=== PATIENT | male | born 1960 | race Caucasian/White ===

== ENCOUNTER 2023-02-22 10:40 | Day surgery (SDC) | payer OTHER, SELFPAY ==
[2022-12-23 10:00] VITALS: BMI 22.1
[2023-02-10 09:43] VITALS: BMI 22.0
[2023-02-22 11:15] VITALS: BP 113/73; PULSE 84; RESP 16; TEMP 37.2; O2SAT 99
--- NOTE | 2023-02-22 12:42 | P.PNAN_ITS ---
Anes - Initial Pre Proc Eval Procedure: Operation Date: 02/22/23 12:30 Proposed Procedures p Screening Colonoscopy - Lake Thomas MD Date/Time: 02/22/23 12:42 Surgeon: Lake Thomas MD Pre Op Diagnosis: Neoplasm Screening Patient Data Age: 62 Gender: M Height: 1.68 m Weight: 60.35 kg Allergies Allergy/AdvReac Type Severity Reaction Status Date / Time amoxicillin AdvReac Unknown IRRITATES Verified 02/22/23 11:39 STOMACH Penicillins AdvReac Unknown Pt does Verified 02/22/23 11:39 not remember reaction Home Medications Medication Instructions Recorded Confirmed Type ascorbate calcium (vitamin C) 500 500 mg PO DAILY 06/17/22 02/22/23 History mg capsule cholecalciferol (vitamin D3) 25 25 mcg PO DAILY 06/17/22 02/22/23 History mcg (1,000 unit) capsule turmeric 400 mg capsule 400 mg PO DAILY 06/17/22 02/22/23 History glucosamine sulfate 500 mg capsule 1,000 mg PO DAILY 12/20/22 02/22/23 History sodium,potassium,mag sulfates 17.5 See Rx Instructions PO .COMPLEX 12/23/22 02/22/23 Rx gram-3.13 gram-1.6 gram oral soln #354 mL (Suprep Bowel Prep Kit) ferrous sulfate 325 mg (65 mg 325 mg PO BID 12/30/22 02/22/23 History iron) tablet Lions Paras Mushroom 1 cap PO DAILY 02/10/23 02/22/23 History Patient hx anesthesia problems: none Family hx anesthesia problems: none Results Review: All pre-operative results and documents have been reviewed as part of the pre- operative evaluation. [facility]LY [facility] Family History Family History Father Diabetes mellitus Family history of malignant neoplasm Social History Social History Smoking status: Never smoker Alcohol intake: current Drinks per week: 2 Substance use: never Substance use type: does not use Lack of Transportation: No Lack of Food: Never True Current Housing: I Have Housing Concerned About Future Housing: No Difficulty Paying Gas/Electric Bills: No Difficulty Paying for Meds: No Currently Unemployed: No Education: Bachelor's Degree Difficulty w/ Childcare or Family Care: No Living arrangements: with family Gender identity (if verbalized by the patient): Male Spiritual care concerns: No Anes - Eval Final PreProcedure Day of Procedure 02/22/23 12:42 Patient weight: normal Heart: regular rate and rhythm Lungs: clear to auscultation Airway: Mallampati scale class II Neurological: alert and oriented Last oral intake: >/= 8 hours ASA classification: II Emergent: no Anesthetic plan: proceed Anesthesia type and monitoring: general GIVS and standard monitoring Results Review: All pre-operative results and documents have been reviewed as part of the pre- operative evaluation. Informed Consent: The patient's anesthetic plan and its attendant risks and benefits were discussed with the patient/family/POA. Questions were solicited and answers provided to the satisfaction of the patient/family/POA.
--- NOTE | 2023-02-22 12:58 | P.HP_ITS ---
History of Present Illness History of Present Illness Consent: Risks, benefits, and alternatives have been discussed and questions answered. Patient agrees to proceed with procedure. Chief complaint: Neoplasm Screening Narrative: Delbert Borden is a 62 year old male Presents for screening colonoscopy. Patient's current weight appetite and bowel movements are normal. Patient denies abdominal pain. He has had no bleeding. Family history is significant that his father was found to have colon cancer several years ago. Patient presents today for neoplasia screening. Review of Systems Review of Systems: Review of systems noncontributory. FOR[facility]LY [facility] Family History Family History Father Diabetes mellitus Family history of malignant neoplasm Social History Social History Smoking status: Never smoker Alcohol intake: current Drinks per week: 2 Substance use: never Substance use type: does not use Lack of Transportation: No Lack of Food: Never True Current Housing: I Have Housing Concerned About Future Housing: No Difficulty Paying Gas/Electric Bills: No Difficulty Paying for Meds: No Currently Unemployed: No Education: Bachelor's Degree Difficulty w/ Childcare or Family Care: No Living arrangements: with family Gender identity (if verbalized by the patient): Male Spiritual care concerns: No Meds Home Medications and Allergies Home Medications Medication Instructions Recorded Confirmed Type ascorbate calcium (vitamin C) 500 500 mg PO DAILY 06/17/22 02/22/23 History mg capsule cholecalciferol (vitamin D3) 25 25 mcg PO DAILY 06/17/22 02/22/23 History mcg (1,000 unit) capsule turmeric 400 mg capsule 400 mg PO DAILY 06/17/22 02/22/23 History glucosamine sulfate 500 mg capsule 1,000 mg PO DAILY 12/20/22 02/22/23 History sodium,potassium,mag sulfates 17.5 See Rx Instructions PO .COMPLEX 12/23/22 02/22/23 Rx gram-3.13 gram-1.6 gram oral soln #354 mL (Suprep Bowel Prep Kit) ferrous sulfate 325 mg (65 mg 325 mg PO BID 12/30/22 02/22/23 History iron) tablet Lions Paras Mushroom 1 cap PO DAILY 02/10/23 02/22/23 History Allergies Allergy/AdvReac Type Severity Reaction Status Date / Time amoxicillin AdvReac Unknown IRRITATES Verified 02/22/23 11:39 STOMACH Penicillins AdvReac Unknown Pt does Verified 02/22/23 11:39 not remember reaction Exam Narrative: Physical exam reveals patient to be alert. Vital signs stable. HEENT exam is unremarkable. Patient is anicteric. Lungs are clear to auscultation and percussion. Heart is without murmur or extra sounds. Abdomen bowel sounds present soft nontender with no organomegaly. Digital external rectal exam normal. Assessment and Plan Assessment and plan (1) Family history of colon cancer in father: Code(s): Z80.0 - Family history of malignant neoplasm of digestive organs Status: Acute Assessment and Plan: Patient's father has had colon cancer. Consider follow-up colonoscopy at 5 year intervals.
[2023-02-22] MEDS: LACTATED RINGERS 1,000 ML 150 ML IV CONT (12:59)
[2023-02-22 13:20] VITALS: BP 91/58; PULSE 80; RESP 14; O2SAT 100
[2023-02-22 13:30] VITALS: BP 91/48; PULSE 78; RESP 16; O2SAT 99
--- NOTE | 2023-02-22 13:37 | SUR.PHASEII ---
PT AWAKE AND ALERT. DENIES PAIN. EATING AND DRINKING. AT BEDSIDE.
[2023-02-22 13:40] VITALS: BP 94/74; PULSE 80; RESP 16; O2SAT 100
--- NOTE | 2023-02-22 13:51 | WPDANESPN ---
Anes - Prog Note Post-Op Date/Time: 02/22/23 13:51 Cardiovascular status: normal Respiratory status: normal Airway patency: baseline Mental status: baseline Post-Op hydration status: normal Vital Signs: Last Vital Signs Temp 37.2 C 02/22/23 11:15 Pulse 80 02/22/23 13:40 Resp 16 02/22/23 13:40 BP 94/74 L 02/22/23 13:40 Pulse Ox 100 02/22/23 13:40 O2 Del Method Room Air 02/22/23 13:40 Pain Score (VAS): 0 I/O: Intake & Output 02/21/23 02/22/23 02/22/23 23:59 07:59 15:59 Intake Total 600 Balance 600 Patient Feedback: Patient satisfied with anesthetic care.
== END 2023-02-22 13:52 | disposition home or self-care (01) ==
PROVIDERS: PCP Family Medicine; Visit Provider Internal Medicine Gastroenterology
PROC: 0DJD8ZZ Inspection of Lower Intestinal Tract, Via Natural or Artificial Opening Endoscopic (ICD-10-PCS; CPT 45378; principal; 2023-02-22 12:30)
DX: Z80.0 Family history of malignant neoplasm of digestive organs (principal)
CPT/HCPCS: 45378

== ENCOUNTER → 2023-05-12 09:51 | Outpatient (CLI) | payer OTHER, SELFPAY ==
--- NOTE | ~2023-05-12 | XR_ITS ---
EXAMINATION: [id number] DATE: 05/12/2023 10:12 INDICATION: Right knee pain TECHNIQUE: Two views of the right knee were obtained. COMPARISON: None. FINDINGS: Alignment is normal. No fracture or osteochondral lesion. There is mild tricompartmental os teoarthritis characterized by tiny marginal osteophytes. There is a small knee joint effusion. Calcif ied atherosclerosis is noted. IMPRESSION: 1. Small knee joint effusion. 2. Mild osteoarthritis. Reviewed, dictated and finalized at location L.
== END ==
PROVIDERS: PCP Family Medicine; Visit Provider Physician Assistant
DX: M25.561 Pain in right knee (principal); M25.461 Effusion, right knee; M17.11 Unilateral primary osteoarthritis, right knee
CPT/HCPCS: 73560